=== PATIENT | male | born 1990 | race Caucasian/White ===

== ENCOUNTER 2018-05-30 18:34 | Emergency (ER) | payer SELFPAY ==
[2018-05-30 18:53] VITALS: BP 118/69; PULSE 124; TEMP 102.8; BMI 28.8
[2018-05-30] MEDS ORDERED: ACETAMINOPHEN 500 MG TABLET (FP) PO ONE (18:53)
--- NOTE | 2018-05-30 18:53 | PDOC ---
Rapid Medical Evaluation Time Seen by Provider: 05/30/18 18:49 Medical Evaluation: 05/30/18 18:52 Pt c/o: sore throat x 1 day, + fever Pt on brief exam: 3+ tonsils w/ erythema Pt ordered for: tylenol 975 mg , rapis strep Pt to proceed to the ED Discharge Disposition - Diagnosis Sore throat - Referrals - Patient Instructions - Post Discharge Activity
[2018-05-30] MEDS ORDERED: PENICILLIN G BENZATHINE 1,200,000 UNIT/2 ML PFS IM ONE (19:44)
[2018-05-30] MEDS ORDERED: DEXAMETHASONE LIQUID 0.5 MG/5 ML 240 ML BULK BOTTLE PO ONE (19:44)
--- NOTE | 2018-05-30 19:47 | PDOC ---
History of Present Illness - General Chief Complaint: Sore Throat Stated Complaint: SORE THROAT Time Seen by Provider: 05/30/18 18:49 - History of Present Illness Initial Comments: 05/30/18 19:44 27 y/o male without comorbidities presents for evaluation of sore throat times one day Past History - Past Medical History Allergies/Adverse Reactions: Allergies Allergy/AdvReac Type Severity Reaction Status Date / Time No Known Allergies Allergy Verified 05/30/18 18:53 COPD: No Hypercholesterolemia: No - Surgical History Appendectomy: No Cholecystectomy: No - Immunization History Immunization Up to Date: No - Suicide/Smoking/Psychosocial Hx Smoking History: Never smoked Have you smoked in the past 12 months: No Information on smoking cessation initiated: No Hx Alcohol Use: No Drug/Substance Use Hx: No Review of Systems - Review of Systems Constitutional: Yes: Fever HEENTM: Yes: Throat Pain, Difficulty Swallowing *Physical Exam - Vital Signs Last Vital Signs Temp Pulse Resp BP Pulse Ox 102.8 F H 124 H 18 118/69 98 05/30/18 18:51 05/30/18 18:51 05/30/18 18:51 05/30/18 18:51 05/30/18 18:51 - Physical Exam Comments: 05/30/18 19:45 HEAD: NC/AT EYES: Conjuntiva clear Ears: Canals and TM's normal NOSE: No d/c THROAT: Moist mucous membrances, oral pharanx erythemic with exudate, uvula midline NECK: Supple without adenopathy CARDIAC: S1 S2 LUNGS: CTA Full and Equal breath sounds ABDOMEN: Soft NT ND MS: Full ROM in all joints without edema NEUROLOGIC: No gross sensory or motor deficits, NVID SKIN: Normal color and temperature no lesions or rashes ED Treatment Course - Medications Given in the ED: ED Medications Discontinued Medications Generic Name Dose Route Start Last Admin Trade Name Freq PRN Reason Stop Dose Admin Acetaminophen 975 mg 05/30/18 18:53 05/30/18 19:36 Tylenol - PO 05/30/18 18:54 975 mg ONCE ONE Administration Medical Decision Making - Medical Decision Making 05/30/18 19:45 We'll forego the rapid strep not wait for results treat him with Decadron and Bicillin. Choice of medicine at home versus Bicillin was offered lesion elected Bicillin *DC/Admit/Observation/Transfer Diagnosis at time of Disposition: Sore throat, Strep pharyngitis - Discharge Dispostion Disposition: HOME Condition at time of disposition: Stable Decision to Admit order: No - Referrals Referrals: Don Redmond MD [Staff Physician] - - Patient Instructions Printed Discharge Instructions: Strep Throat, DI for Strep Throat Additional Instructions: Usted fue tratado con nadia inyeccin maverick de un antibitico, as ariana un esteroide. No requiere tratamiento adicional para la faringitis estreptoccica. En casa solo hitesh Tylenol ariana se indica para el dolor. Regrese a la megan de emergencias para empeorar los sntomas y eddi un seguimiento con kilgore mdico de atencin primaria en rachel o dos ceron para nadia evaluacin adicional y opciones de tratamiento. Las grgaras de agua tibia con ned eugene los prximos ceron ayudarn a aliviar el dolor de garganta. you were treated with a one-time injection of an antibiotic as well as a steroid. He do not require further treatment for strep throat. At home only take Tylenol as directed for pain. Return to the emergency room for worsening symptoms and follow-up with your primary care physician in one to 2 days for further evaluation and treatment options. Warm salt water gargles over the next few days will help seizure throat pain. - Post Discharge Activity
[2018-05-30] MEDS ORDERED: DEXAMETHASONE SOD PHOSPHATE 10 MG/1 ML VIAL ONE (19:51)
[2018-05-30] MEDS ORDERED: PENICILLIN G BENZATHINE 2,400,000 UNIT/4 ML PFS ONE (19:52)
--- NOTE | 2018-05-31 09:17 | PDOC ---
Patient Follow-up (Call Back) - Post ED Follow - Up Condition at time of discharge: Stable Disposition at time of original discharge: HOME Reason for Call Back: Abnwl. Microbiology (Rapid strep positive on Micro. Treated with bicillin in the ED. No further work up needed)
== END 2018-05-30 20:06 | disposition home or self-care (01) ==
LOC: JERFT 18:34
DX: J02.0 Streptococcal pharyngitis (principal)
CPT/HCPCS: 87880; 99281-25